=== PATIENT | female | born 1955 | race African-American/Black ===

== ENCOUNTER 2024-07-04 17:18 | Emergency (ER) | payer SELFPAY ==
--- NOTE | ~2024-07-04 | CT_ITS ---
CLINICAL INDICATION: Abdominal pain with nausea vomiting and diarrhea COMPARISON: None. TECHNIQUE: Multiple contiguous axial images of the abdomen and pelvis were performed following the ad ministration of with 100 mL Omnipaque-350 intravenous contrast The dose-length product (DLP) was 275.58 mGy-cm. Automated exposure control and iterative reconstruction technique were employed. FINDINGS/OBSERVATIONS: Visualized lower thorax: The bilateral lung bases are clear. The heart is of normal size, without pericardial effusion. Liver: The liver demonstrates homogeneous enhancement and is not enlarged. Gallbladder and biliary system: The gallbladder is only minimally distended, and otherwise unremarkable. Pancreas: The pancreas enhances homogeneously without ductal dilatation. Spleen: The spleen enhances homogeneously and is not enlarged. Kidneys: The bilateral kidneys enhance symmetrically without hydronephrosis or renal calculi. Adrenal glands: Unremarkable. Gastrointestinal tract: Edematous mural thickening within the stomach with surrounding inflammatory change, findings suggesti ng gastritis. Fecal stasis within the colon. Appendix: The air-filled appendix is of normal caliber (axial series, images 122 through 134). Vasculature: Unremarkable. Lymph nodes: No pathologically enlarged or morphologically suspicious lymph nodes within the retroperitoneum or at the root of the mesentery. Pelvic structures: The bladder is minimally distended, and otherwise unremarkable. The uterus is heterogeneous, likely representing fibroid disease. 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 Disc space narrowing at the level of L5/S1 is also noted, with a vacuum phenomena. Diffuse facet arthropathy is also present. IMPRESSION: Findings suggesting gastritis, as detailed above. Reviewed, dictated and finalized at location A.
[2024-07-04 17:22] VITALS: BP 154/91; PULSE 72; RESP 15; TEMP 36.4; O2SAT 99
--- NOTE | 2024-07-04 18:13 | ED_ITS ---
HPI - Nausea/Vomiting/Diarrhea General Chief complaint: Nausea/Vomiting/Diarrhea <XAVIER Dennis Last Filed: 07/04/24 18:21> Stated complaint: Vomiting, Nausea since Monday, weakness <XAVIER Dennis Last Filed: 07/04/24 18:21> Time Seen by Provider: 07/04/24 18:13 <XAVIER Dennis Last Filed: 07/04/24 18:21> Focused HPI: Patient is a 68 y/o female who presents to the ED with c/o N/V. Patient reports having persistent N/V since Monday. Unable to keep anything down. Reports diffuse pain in her stomach, feels like it is boiling and bubbling. Took milk of magnesia on Monday, but vomited this up. She had a large BM after this but has since had persistent diarrhea. Patient states she feels very weak and dehydrated, reports intermittent dizziness. Denies fevers, rectal bleeding, melena, sick contacts. GENERAL: Well-appearing, well-nourished, and in no acute distress. HEAD: Normocephalic, atraumatic. CHEST: Clear to auscultation. ?No respiratory distress. HEART: Regular rate and rhythm.? ABD: mild diffuse tenderness, more focal in RUQ NEURO: ?Alert and oriented x3. Patient screened in triage and initial orders placed.? ?Additional care and disposition to be based upon?diagnostic testing and treatment. <XAVIER Dennis Last Filed: 07/04/24 18:21> Source: patient <XAVIER Dennis Last Filed: 07/04/24 18:21> Mode of arrival: ambulatory <XAVIER Dennis Last Filed: 07/04/24 18:21> Limitations: no limitations <XAVIER Dennis Last Filed: 07/04/24 18:21> History of Present Illness HPI Narrative: Agree with the above with the following additions/corrections. Patient has had nausea and vomiting since Monday. Emesis has been nonbloody. There had been multiple episodes daily but only 2 today. She has had decreased sleep. She is feeling weak and dehydrated. She initially thought was food poisoning took milk of magnesia. Intermittent abdominal discomfort when she states it boils over. She had boost drink and potatoes yesterday and the boost drink today but otherwise denies having an appetite. She denies any diarrhea although she then states that after she had the milk of magnesia she had a lot of liquid nonbloody stool. No stool since. No history of abdominal surgery. Denies hematuria, urgency, frequency, or dysuria. No flank pain. Recent travel includes driving from [place] to here as they have recently moved, this has been stressful. No recent antibiotics. No other sick contacts in is not sick. No vaginal bleeding or discharge. No fevers. She has been intermittently feeling chilled. <Janeen Villanueva MD - Last Filed: 07/05/24 17:10> Related Data Allergies/Adverse reactions: Allergies Allergy/AdvReac Type Severity Reaction Status Date / Time No Known Allergies Allergy Verified 07/04/24 17:20 <Jessenia Galvez PA-C - Last Filed: 07/04/24 18:21> FORMERLY [facility] Social History Social History: Social History Social History: . Recently moved from [place] Alcohol intake: current Alcohol use details: occasional Living arrangements: with family Additional living arrangements comments: <Jessenia Galvez PA-C - Last Filed: 07/04/24 18:21> Exam 2 Narrative: GENERAL:well-nourished, and in no acute distress. HEAD: Normocephalic, atraumatic. EYES: Non injected, non icteric ENT: Nares clear, no rhinorrhea or epistaxis. Gross auditory acuity intact. Tacky mucous membranes with white film overlying tongue. NECK: Supple. No meningismus. CHEST: Speaking in full sentences. No respiratory distress. HEART: Regular rate and rhythm. . ABDOMEN: Soft, nondistended. No rigidity or guarding. Not peritoneal. No tenderness to palpation throughout. EXTREMITIES: Normal range of motion. No lower extremity edema. SKIN: Warm, dry, no rash. NEURO: No focal deficits. Alert and oriented. Answering questions. Following commands. Normal speech without aphasia or dysarthria. PSYCH: Normal mood and affect. <Janeen Villanueva MD - Last Filed: 07/05/24 17:10> Course Vital Signs Vital signs: Vital Signs Temperature 97.6 F 07/04/24 17:22 Pulse Rate 72 07/04/24 17:22 Respiratory Rate 15 07/04/24 17:22 Blood Pressure 154/91 H 07/04/24 17:22 Pulse Oximetry 99 07/04/24 17:22 Oxygen Delivery Room Air 07/04/24 17:22 Temperature 98.2 F 07/04/24 23:14 Pulse Rate 69 07/04/24 23:14 Respiratory Rate 16 07/04/24 23:14 Blood Pressure 139/90 07/04/24 23:14 Pulse Oximetry 97 07/04/24 23:14 Oxygen Delivery Room Air 07/04/24 17:22 <Jessenia Galvez PA-C - Last Filed: 07/04/24 18:21> Vital Signs Temperature 97.6 F 07/04/24 17:22 Pulse Rate 72 07/04/24 17:22 Respiratory Rate 15 07/04/24 17:22 Blood Pressure 154/91 H 07/04/24 17:22 Pulse Oximetry 99 07/04/24 17:22 Oxygen Delivery Room Air 07/04/24 17:22 Temperature 98.2 F 07/04/24 23:14 Pulse Rate 69 07/04/24 23:14 Respiratory Rate 16 07/04/24 23:14 Blood Pressure 139/90 07/04/24 23:14 Pulse Oximetry 97 07/04/24 23:14 Oxygen Delivery Room Air 07/04/24 17:22 <Janeen Villanueva MD - Last Filed: 07/05/24 17:10> MDM - Nausea/Vomiting/Diarrhea MDM Narrative Medical decision making narrative: MSE by KALLI in triage. <Jessenia Galvez PA-C - Last Filed: 07/04/24 18:21> Patient presents with nausea and vomiting since Monday. She tried milk of magnesia which caused her to have a lot of liquid stool which then resolved but for which she has not subsequently had a bowel movement. Concerned because she is weak and feeling dehydrated. In the emergency department she is afebrile with vital signs notable for mild hypertension. MSE by KALLI in triage. For which IV fluids, famotidine, and Zofran ordered. Urinalysis with rare bacteria with moderate squamous cells. There are less than 10 white blood cells and 1+ leukocyte esterase. Patient is otherwise asymptomatic and she denies any urinary symptoms or flank pain. For this reason will defer antibiotics at this time. Urine because it was abnormal did reflex to culture and we will await this. Very mild leukocytosis and hemoglobin is elevated. I suspect this is due to hemoconcentration. Viral swab negative. CT scan shows gastritis as below. Patient reassessed at 10:30 p.m. she states she is feeling better. She says during the process of the move she was taking NSAIDs occasionally for being sore and achy though not to excessive degree. She also drank a glass or 2 of wine in the day preceding her symptoms but in general does not drink alcohol regularly. Omeprazole given. Stable for discharge with Rx for Zofran and omeprazole and provided referral contact information for a PCP as patient recently moved to the area. <Janeen Villanueva MD - Last Filed: 07/05/24 17:10> Differential Diagnosis Differential diagnosis: Likely traveler's diarrhea, food poisoning, gastroenteritis, drug-induced nausea and vomiting and dehydration <Janeen Villanueva MD - Last Filed: 07/05/24 17:10> Lab Data Attestation: I reviewed the patient's lab results. <Janeen Villanueva MD - Last Filed: 07/05/24 17:10> Result diagrams: 07/04/24 20:14 07/04/24 20:14 <Jessenia Galvez PA-C - Last Filed: 07/04/24 18:21> Labs: Lab Results 07/04/24 07/04/24 07/04/24 Range/Units 19:44 20:14 20:38 WBC 10.1 H (4.5-10.0) K/mm3 RBC 5.05 (4.2-5.4) M/mm3 Hgb 16.1 H (12.0-15.0) g/dL Hct 49.9 H (37.0-47.0) % MCV 98.8 (80-100) fl MCH 31.9 (26-34) pg MCHC 32.3 (32-36) g/dl RDW 12.8 (11.5-14.5) % Plt Count 219 (150-375) k/mm3 MPV 9.3 (7.4-10.4) fl Immature Gran % (Auto) 0.4 (0-0.5) % Neut % (Auto) 60.8 (45.5-73.1) % Lymph % (Auto) 30.9 (18.3-44.2) % Nobles % (Auto) 5.3 (2.6-8.5) % Eos % (Auto) 2.1 (0-4.4) % Baso % (Auto) 0.5 (0.2-1.2) % Lymph # (Auto) 3.11 (0.9-3.2) K/mm3 Nobles # (Auto) 0.5 (0.1-0.6) K/mm3 Eos # (Auto) 0.2 (0-0.3) K/mm3 Baso # (Auto) 0.1 (0.0-0.1) K/mm3 Abs Immat Gran (auto) 0.04 H (0.00-0.031) K/mm3 Absolute Neuts (auto) 6.1 (1.3-6.7) K/mm3 Absolute Nucleated RBC 0.000 (0.0-0.012) K/mm3 Nucleated RBC % 0.0 (0.0-0.2) % Sodium 137 (137-145) mmol/L Potassium 4.8 (3.4-5.0) mmol/L Chloride 101 (98-107) mmol/L Carbon Dioxide 28 (22-30) mmol/L Anion Gap 8 (4-12) mmol/L BUN 18 H (7-17) mg/dL Creatinine 0.84 (0.7-1.0) mg/dL Estim Creat Clear Calc 50 ml/min Estimated GFR > 60 (59 - ) Glucose 109 (65-110) mg/dL Calcium 9.6 (8.4-10.2) mg/dL Magnesium 2.0 (1.6-2.3) mg/dL Total Bilirubin 0.9 (0.2-1.3) mg/dL AST 38 H (14-36) U/L ALT 22 (6-35) U/L Alkaline Phosphatase 103 (38-126) U/L Total Protein 8.0 (6.3-8.2) g/dL Albumin 4.6 (3.5-5.1) g/dL Lipase 92 (23-300) U/L Urine Color Yellow (Yellow) Urine Appearance Clear (Clear) Urine pH 6.5 (5.0-9.0) Ur Specific [place] 1.027 (1.001-1.035) Urine Protein Negative (Negative) mg/dL Urine Glucose (UA) Negative (Negative) mg/dL Urine Ketones Trace H (Negative) mg/dL Ur Blood (Man) Negative (Negative) Urine Nitrate Negative (Negative) Urine Bilirubin Negative (Negative) Urine Urobilinogen 1.0 (<2.0) mg/dL Leukocyte Esterase Rfl 1+ H (Negative) ANGELINA/UL Urine RBC 3-5 H (0-2) /hpf Urine WBC 6-10 H (0-3) /hpf Ur Squamous Epith Cells Few (Few) /hpf Urine Bacteria Rare /hpf Urine Casts 0-2 Influenza A (RT-PCR) Negative (Negative) Influenza B (RT-PCR) Negative (Negative) SARS-CoV-2 RNA (RT-PCR) Negative (Negative) <Jessenia Galvez PA-C - Last Filed: 07/04/24 18:21> Lab Results 07/04/24 07/04/24 07/04/24 Range/Units 19:44 20:14 20:38 WBC 10.1 H (4.5-10.0) K/mm3 RBC 5.05 (4.2-5.4) M/mm3 Hgb 16.1 H (12.0-15.0) g/dL Hct 49.9 H (37.0-47.0) % MCV 98.8 (80-100) fl MCH 31.9 (26-34) pg MCHC 32.3 (32-36) g/dl RDW 12.8 (11.5-14.5) % Plt Count 219 (150-375) k/mm3 MPV 9.3 (7.4-10.4) fl Immature Gran % (Auto) 0.4 (0-0.5) % Neut % (Auto) 60.8 (45.5-73.1) % Lymph % (Auto) 30.9 (18.3-44.2) % Nobles % (Auto) 5.3 (2.6-8.5) % Eos % (Auto) 2.1 (0-4.4) % Baso % (Auto) 0.5 (0.2-1.2) % Lymph # (Auto) 3.11 (0.9-3.2) K/mm3 Nobles # (Auto) 0.5 (0.1-0.6) K/mm3 Eos # (Auto) 0.2 (0-0.3) K/mm3 Baso # (Auto) 0.1 (0.0-0.1) K/mm3 Abs Immat Gran (auto) 0.04 H (0.00-0.031) K/mm3 Absolute Neuts (auto) 6.1 (1.3-6.7) K/mm3 Absolute Nucleated RBC 0.000 (0.0-0.012) K/mm3 Nucleated RBC % 0.0 (0.0-0.2) % Sodium 137 (137-145) mmol/L Potassium 4.8 (3.4-5.0) mmol/L Chloride 101 (98-107) mmol/L Carbon Dioxide 28 (22-30) mmol/L Anion Gap 8 (4-12) mmol/L BUN 18 H (7-17) mg/dL Creatinine 0.84 (0.7-1.0) mg/dL Estim Creat Clear Calc 50 ml/min Estimated GFR > 60 (59 - ) Glucose 109 (65-110) mg/dL Calcium 9.6 (8.4-10.2) mg/dL Magnesium 2.0 (1.6-2.3) mg/dL Total Bilirubin 0.9 (0.2-1.3) mg/dL AST 38 H (14-36) U/L ALT 22 (6-35) U/L Alkaline Phosphatase 103 (38-126) U/L Total Protein 8.0 (6.3-8.2) g/dL Albumin 4.6 (3.5-5.1) g/dL Lipase 92 (23-300) U/L Urine Color Yellow (Yellow) Urine Appearance Clear (Clear) Urine pH 6.5 (5.0-9.0) Ur Specific [place] 1.027 (1.001-1.035) Urine Protein Negative (Negative) mg/dL Urine Glucose (UA) Negative (Negative) mg/dL Urine Ketones Trace H (Negative) mg/dL Ur Blood (Man) Negative (Negative) Urine Nitrate Negative (Negative) Urine Bilirubin Negative (Negative) Urine Urobilinogen 1.0 (<2.0) mg/dL Leukocyte Esterase Rfl 1+ H (Negative) ANGELINA/UL Urine RBC 3-5 H (0-2) /hpf Urine WBC 6-10 H (0-3) /hpf Ur Squamous Epith Cells Few (Few) /hpf Urine Bacteria Rare /hpf Urine Casts 0-2 Influenza A (RT-PCR) Negative (Negative) Influenza B (RT-PCR) Negative (Negative) SARS-CoV-2 RNA (RT-PCR) Negative (Negative) <Janeen Villanueva MD - Last Filed: 07/05/24 17:10> Imaging Data Radiologist's impression: Impressions Abdomen/Pelvis CT 07/04/24 21:55 IMPRESSION: Findings suggesting gastritis, as detailed above. <Janeen Villanueva MD - Last Filed: 07/05/24 17:10> Discharge Plan Discharge Clinical Impression: Abnormal urinalysis, Nausea & vomiting, Gastritis <Jessenia Galvez PA-C - Last Filed: 07/04/24 18:21> Patient Disposition: Home <XAVIER Dennis Last Filed: 07/04/24 18:21> Condition: Stable <Jessenia Galvez PA-C - Last Filed: 07/04/24 18:21> Instructions: Antibiotic Form, Gastritis (DC), Acute Nausea and Vomiting (DC) <XAVIER Dennis Last Filed: 07/04/24 18:21> Additional Instructions: As we discussed, you appear to have gastritis. Rest and maintain your hydration. If you continue to have nausea and vomiting you can use the oral disintegrating tablets of ondansetron/Zofran. The omeprazole can help suppress the acid in your stomach. Follow-up with primary care physician. If you do not have 1 established in the area yet, the name of the doctors listed below. <XAVIER Dennis Last Filed: 07/04/24 18:21> Patient Language: Kazakh <Jessenia Galvez PA-C - Last Filed: 07/04/24 18:21> Prescriptions: New ondansetron 4 mg tablet,disintegrating 4 mg PO Q8H PRN (Reason: nausea and vomiting) Qty: 7 0RF omeprazole 20 mg tablet,delayed release (DR/EC) 20 mg PO DAILY Qty: 14 0RF <Jessenia Galvez PA-C - Last Filed: 07/04/24 18:21> Follow-up/Referrals: Jose Guadalupe Whitten MD [Physician] - PHYSICIAN,TYPING BOOKKEEPER [Primary Care Provider] - <Jessenia Galvez PA-C - Last Filed: 07/04/24 18:21> Stand Alone Forms: Work/School Release IP <Jessenia Galvez PA-C - Last Filed: 07/04/24 18:21> Time of Disposition: 22:35 <Jessenia Galvez PA-C - Last Filed: 07/04/24 18:21> 22:35 <Janeen Villanueva MD - Last Filed: 07/05/24 17:10>
[2024-07-04 19:55] LABS: Add Urine Microscopic? YES; Appearance Urine Clear (Clear); Bacteria Urine Rare /hpf; Bilirubin Urine Negative (Negative); Blood Urine Negative (Negative); Color Urine Yellow (Yellow); Glucose Urine UA Negative (Negative); Ketones Urine Trace mg/dL (Negative); Leukocyte Esterase Ur 1+ LEU/UL (Negative); Nitrate Urine Negative (Negative); Non Pathogenic Casts 0-2; Protein Urine Negative (Negative); Specific Grav Ur 1.027 (1.001-1.035); Squamous Epithelial Cell Urine Few /hpf (Few); pH Urine 6.5 (5.0-9.0)
[2024-07-04] MEDS: SODIUM CHLORIDE 0.9% IV 1,000 ML 999 ML IV CONT (20:17)
[2024-07-04] MEDS: FAMOTIDINE 20 MG/2 ML VIAL IV PUSH (20:17)
[2024-07-04] MEDS: ONDANSETRON INJ 4 MG/2 ML VIAL IV PUSH (20:17)
[2024-07-04 20:21] VITALS: O2SAT 100
[2024-07-04 20:24] LABS: Basophils Absolute Auto 0.1 K/mm3 (0.0-0.1); Basophils Percent Auto 0.5 % (0.2-1.2); Eosinophils Absolute Auto 0.2 K/mm3 (0-0.3); Eosinophils Percent Auto 2.1 % (0-4.4); Hematocrit 49.9 % (37.0-47.0); Hemoglobin 16.1 g/dL (12.0-15.0); Immature Granulocyte Absolute 0.04 K/mm3 (0.00-0.031); Immature Granulocyte Percent A 0.4 % (0-0.5); Lymphocytes Absolute Auto 3.11 K/mm3 (0.9-3.2); Lymphocytes Percent Auto 30.9 % (18.3-44.2); Mean Corpuscular HGB Conc 32.3 g/dl (32-36); Mean Corpuscular Hemoglobin 31.9 pg (26-34); Mean Corpuscular Volume 98.8 fl (80-100); Mean Platelet Volume 9.3 fl (7.4-10.4); Monocytes Absolute Auto 0.5 K/mm3 (0.1-0.6); Monocytes Percent Auto 5.3 % (2.6-8.5); Neutrophils Absolute Auto 6.1 K/mm3 (1.3-6.7); Neutrophils Percent Auto 60.8 % (45.5-73.1); Platelet Count Result 219 k/mm3 (150-375); Red Blood Count 5.05 M/mm3 (4.2-5.4); Red Cell Distribution Width 12.8 % (11.5-14.5); White Blood Count 10.1 K/mm3 (4.5-10.0)
[2024-07-04 20:35] LABS: Alanine Aminotransferase 22 U/L (6-35); Albumin Level 4.6 g/dL (3.5-5.1); Alkaline Phosphatase 103 U/L (38-126); Anion Gap 8 mmol/L (4-12); Aspartate Amino Transferase 38 U/L (14-36); Bilirubin,Total 0.9 mg/dL (0.2-1.3); Blood Urea Nitrogen 18 mg/dL (7-17); Calcium 9.6 mg/dL (8.4-10.2); Carbon Dioxide 28 mmol/L (22-30); Chloride 101 mmol/L (98-107); Estimated CRCL calculation 50 ml/min; Estimated Glomerular Filt Rate > 60; Glucose 109 mg/dL (65-110); Lipase 92 U/L (23-300); Potassium 4.8 mmol/L (3.4-5.0); Sodium 137 mmol/L (137-145)
[2024-07-04 21:19] LABS: Influenza A QL RT-PCR Negative (Negative); Influenza B QL RT-PCR Negative (Negative); SARS-CoV-2 RNA PCR Negative (Negative)
[2024-07-04] MEDS: PANTOPRAZOLE 40 MG TABLET PO (22:41)
[2024-07-04 22:59] VITALS: BP 137/70; O2SAT 98
[2024-07-04 23:00] VITALS: BP 111/99; O2SAT 97
[2024-07-04 23:14] VITALS: BP 139/90; PULSE 69; RESP 16; TEMP 36.8; O2SAT 97
== END 2024-07-04 23:16 | disposition home or self-care (01) ==
PROVIDERS: Physician Assistant; Emergency Provider Student in an Organized Health Care Education/Training Program
DX: K29.70 Gastritis, unspecified, without bleeding (principal); R82.998 Other abnormal findings in urine; Z20.822 Contact with and (suspected) exposure to COVID-19
CPT/HCPCS: 36415; 74177; 80053; 81001; 83690; 83735; 85025; 87086; 87636; 96361; 96374; 96375; 99284; A9270; J2405; J7030; Q9967